=== PATIENT | male | born 1965 | race African-American/Black ===

== ENCOUNTER 2017-12-05 00:21 | Emergency (ER) | payer OTHER ==
[~2017-12-05] VITALS: Ht 180.3 cm; Wt 68.0 kg
[2017-12-05 00:28] VITALS: Ht 180.3 cm; Wt 68.0 kg
[2017-12-05 01:21] LABS: CALCIUM 9.4 mg/dL (8.5-10.1); CARBON DIOXIDE 21.3 mmol/L (21-32); CREATININE SERUM 2.3 mg/dL (0.7-1.3); POTASSIUM SERUM 3.6 mmol/L (3.5-5.1)
[2017-12-05 01:46] LABS: AMPHETAMINE QUAL UR NONE DETECTED (NEG <=1000)
[2017-12-05 02:42] VITALS: BP 121/82
[2017-12-05] MEDS ORDERED: KEPPRA500 MG (04:30)
== END 2017-12-05 02:42 | disposition home or self-care (01) ==
LOC: ED 00:21
PROVIDERS: Emergency Medicine
DX: S01.01XA Laceration without foreign body of scalp, initial encounter (principal); R56.9 Unspecified convulsions; X58.XXXA Exposure to other specified factors, initial encounter; Y93.89 Activity, other specified; Y92.89 Other specified places as the place of occurrence of the external cause; Y99.8 Other external cause status
CPT/HCPCS: 36415; J2001

== ENCOUNTER 2017-12-05 03:06 | Emergency (ER) | payer OTHER ==
[~2017-12-05] VITALS: Ht 175.3 cm; Wt 67.6 kg
[2017-12-05 03:11] VITALS: Ht 175.3 cm; Wt 67.6 kg
[2017-12-05] MEDS ORDERED: KEPPRA500 MG (04:30)
[2017-12-05 04:46] VITALS: BP 108/64
== END 2017-12-05 04:46 | disposition home or self-care (01) ==
LOC: ED 03:06
DX: S50.01XA Contusion of right elbow, initial encounter (principal); R11.2 Nausea with vomiting, unspecified; X58.XXXA Exposure to other specified factors, initial encounter; Y93.89 Activity, other specified; Y92.89 Other specified places as the place of occurrence of the external cause; Y99.8 Other external cause status
CPT/HCPCS: J1885; Q0092; Q0162

== ENCOUNTER 2017-12-20 13:44 | Emergency (ER) | payer OTHER ==
[~2017-12-20] VITALS: Ht 177.8 cm; Wt 59.0 kg
[~2017-12-20 13:44] MED LIST: KEPPRA500 MG
[2017-12-20 14:02] VITALS: BP 131/83; Ht 177.8 cm; Wt 59.0 kg
== END 2017-12-20 14:19 | disposition left against medical advice (07) ==
LOC: ED 13:44
DX: Z53.21 Procedure and treatment not carried out due to patient leaving prior to being seen by health care provider (principal)

== ENCOUNTER 2018-01-02 10:26 | Emergency (ER) | payer OTHER ==
[~2018-01-02] VITALS: Ht 180.3 cm; Wt 63.5 kg
[2018-01-02 10:41] VITALS: BP 158/97; Ht 180.3 cm; Wt 63.5 kg
== END 2018-01-02 11:40 | disposition home or self-care (01) ==
LOC: ED 10:26
DX: S01.01XD Laceration without foreign body of scalp, subsequent encounter (principal); X58.XXXD Exposure to other specified factors, subsequent encounter

== ENCOUNTER 2018-08-05 16:24 | Emergency (ER) | payer OTHER ==
[~2018-08-05] VITALS: Ht 177.8 cm; Wt 71.2 kg
[2018-08-05 16:28] VITALS: Ht 177.8 cm; Wt 71.2 kg
[2018-08-05 17:20] LABS: PLATELET COUNT 454 x10^3mcL (130-400); RED CELL DISTRIBUTION WIDTH 16.5 % (11.5-14.5)
[2018-08-05 17:41] LABS: CALCIUM 9.3 mg/dL (8.5-10.1); CARBON DIOXIDE 27.5 mmol/L (21-32); CHLORIDE SERUM 103 mmol/L (98-107); CREATININE SERUM 1.1 mg/dL (0.7-1.3); GFR1 > 60 mL/min; GLUCOSE SERUM 123 mg/dL (74-106); POTASSIUM SERUM 3.9 mmol/L (3.5-5.1); SODIUM SERUM 142 mmol/L (136-145)
[2018-08-05 17:45] LABS: ALBUMIN 4.2 g/dL (3.4-5.0); ALKALINE PHOSPHATASE 66 U/L (46-116); ALT/SGPT 45 U/L (16-63); AST/SGOT 59 U/L (15-37); BILIRUBIN TOTAL 1.03 mg/dL (0.20-1.00); TOTAL PROTEIN, SERUM 8.5 g/dL (6.4-8.2)
[2018-08-05 18:55] VITALS: BP 134/89
== END 2018-08-05 18:55 | disposition home or self-care (01) ==
LOC: ED 16:24
PROVIDERS: Emergency Medicine
DX: G40.909 Epilepsy, unspecified, not intractable, without status epilepticus (principal)
CPT/HCPCS: 82962; J1953; J3490

== ENCOUNTER 2019-09-26 16:14 | Emergency (ER) | payer OTHER ==
[~2019-09-26] VITALS: Ht 177.8 cm; Wt 59.0 kg
[2019-09-26 16:28] VITALS: Ht 177.8 cm; Wt 59.0 kg
[2019-09-26 18:30] VITALS: BP 111/75
== END 2019-09-26 18:30 | disposition home or self-care (01) ==
LOC: ED 16:14
DX: M54.2 Cervicalgia (principal); F17.210 Nicotine dependence, cigarettes, uncomplicated
CPT/HCPCS: J1885

== ENCOUNTER 2019-10-07 12:52 | Emergency (ER) | payer OTHER ==
[~2019-10-07] VITALS: Ht 177.8 cm; Wt 63.5 kg
[2019-10-07 13:03] VITALS: Ht 177.8 cm; Wt 63.5 kg
== END 2019-10-07 14:00 | disposition home or self-care (01) ==
LOC: ED 12:52
DX: Z76.0 Encounter for issue of repeat prescription (principal)

== ENCOUNTER 2020-03-27 20:55 | Inpatient (IN) | payer OTHER ==
[~2020-03-27] VITALS: Ht 177.8 cm; Wt 58.1 kg
[2020-03-27 21:04] VITALS: Ht 177.8 cm; Wt 58.1 kg
[2020-03-27 21:25] LABS: CALCIUM 8.2 mg/dL (8.5-10.1); CARBON DIOXIDE 23.7 mmol/L (21-32); CHLORIDE SERUM 95 mmol/L (98-107); CREATININE SERUM 1.3 mg/dL (0.7-1.3); GFR1 > 60 mL/min; GLUCOSE SERUM 175 mg/dL (74-106); POTASSIUM SERUM 4.3 mmol/L (3.5-5.1); SODIUM SERUM 137 mmol/L (136-145)
[2020-03-27 21:29] LABS: ALBUMIN 3.6 g/dL (3.4-5.0); ALKALINE PHOSPHATASE 92 U/L (46-116); ALT/SGPT 48 U/L (16-63); AST/SGOT 136 U/L (15-37); BILIRUBIN TOTAL 1.3 mg/dL (0.20-1.00); MAGNESIUM 1.2 mg/dL (1.8-2.4); TOTAL PROTEIN, SERUM 7.9 g/dL (6.4-8.2)
[2020-03-27 21:34] LABS: BASOPHIL % 0.5 % (0-2); PLATELET COUNT 358 x10^3mcL (130-400); RED CELL DISTRIBUTION WIDTH 16.5 % (11.5-14.5)
[2020-03-28 02:18] VITALS: BP 148/90
[2020-03-28 05:50] VITALS: BP 139/88
[2020-03-28 07:43] LABS: T3 TOTAL 1.03 ng/mL
[2020-03-28 07:47] LABS: FREE T4 0.94 ng/dL (0.76-1.46); FREE THYROXINE INDEX 1.7 ug/dL (1.4-4.5); T4(THYROXINE) 5.7 ug/dL (4.7-13.3)
[2020-03-28 08:43] VITALS: BP 146/93
[2020-03-28 08:46] LABS: PHOSPHOROUS 2.6 mg/dL (2.5-4.9)
[2020-03-28 08:58] LABS: CHOLESTEROL/HDL RATIO 1.2
[2020-03-28 12:12] LABS: BASOPHIL % 0.6 % (0-2); PLATELET COUNT 171 x10^3mcL (130-400)
[2020-03-28 12:18] LABS: RED CELL DISTRIBUTION WIDTH 16.8 % (11.5-14.5)
[2020-03-28 12:23] LABS: ALBUMIN 3.6 g/dL (3.4-5.0); ALKALINE PHOSPHATASE 91 U/L (46-116); ALT/SGPT 34 U/L (16-63); AST/SGOT 94 U/L (15-37); BILIRUBIN DIRECT 0.44 mg/dL (0.0-0.2); BILIRUBIN TOTAL 1.6 mg/dL (0.20-1.00); MAGNESIUM 2.1 mg/dL (1.8-2.4); PHOSPHOROUS 2.8 mg/dL (2.5-4.9)
[2020-03-28 12:55] LABS: CARBON DIOXIDE 21.4 mmol/L (21-32); CHLORIDE SERUM 95 mmol/L (98-107); CREATININE SERUM 0.8 mg/dL (0.7-1.3); GFR1 > 60 mL/min; GLUCOSE SERUM 66 mg/dL (74-106); POTASSIUM SERUM 3.5 mmol/L (3.5-5.1); SODIUM SERUM 140 mmol/L (136-145); TOTAL PROTEIN, SERUM 8.7 g/dL (6.4-8.2)
[2020-03-28 12:56] LABS: CALCIUM 9.2 mg/dL (8.5-10.1)
[2020-03-28 13:19] VITALS: BP 149/91
[2020-03-28] MEDS ORDERED: KEPPRA500 MG PO (14:41)
[2020-03-28 17:38] VITALS: BP 146/90
[2020-03-28 21:47] VITALS: BP 143/92
[2020-03-29 00:10] VITALS: BP 144/92
[2020-03-29 05:39] VITALS: BP 129/88
[2020-03-29 08:27] LABS: CALCIUM 8.7 mg/dL (8.5-10.1); CARBON DIOXIDE 26.1 mmol/L (21-32); CHLORIDE SERUM 94 mmol/L (98-107); CREATININE SERUM 1.2 mg/dL (0.7-1.3); GFR1 > 60 mL/min; GLUCOSE SERUM 96 mg/dL (74-106); MAGNESIUM 1.5 mg/dL (1.8-2.4); PHOSPHOROUS 1.9 mg/dL (2.5-4.9); POTASSIUM SERUM 3.1 mmol/L (3.5-5.1); SODIUM SERUM 132 mmol/L (136-145)
[2020-03-29 09:12] VITALS: BP 119/81
[2020-03-29 10:03] LABS: BASOPHIL % 0.4 % (0-2); PLATELET COUNT 266 x10^3mcL (130-400)
[2020-03-29 10:33] LABS: RED CELL DISTRIBUTION WIDTH 16.5 % (11.5-14.5)
[2020-03-29 13:11] VITALS: BP 119/73
[2020-03-29 17:54] VITALS: BP 123/81
[2020-03-29 19:43] VITALS: BP 125/87
[2020-03-30 05:57] VITALS: BP 116/82
[2020-03-30 07:48] LABS: CALCIUM 8.8 mg/dL (8.5-10.1); CARBON DIOXIDE 25.7 mmol/L (21-32); CHLORIDE SERUM 97 mmol/L (98-107); CREATININE SERUM 1.2 mg/dL (0.7-1.3); GFR1 > 60 mL/min; GLUCOSE SERUM 66 mg/dL (74-106); MAGNESIUM 2.7 mg/dL (1.8-2.4); PHOSPHOROUS 3.8 mg/dL (2.5-4.9); POTASSIUM SERUM 3.1 mmol/L (3.5-5.1); SODIUM SERUM 137 mmol/L (136-145)
[2020-03-30 08:12] LABS: BASOPHIL % 0.2 % (0-2); PLATELET COUNT 280 x10^3mcL (130-400); RED CELL DISTRIBUTION WIDTH 16.4 % (11.5-14.5)
[2020-03-30 08:50] VITALS: BP 128/102
[2020-03-30 13:52] VITALS: BP 121/78
[2020-03-30] MEDS ORDERED: FOL1 PO (17:16)
[2020-03-30] MEDS ORDERED: THI100 PO (17:16)
[2020-03-30 17:33] VITALS: BP 124/85
[2020-03-31 05:42] VITALS: BP 119/77
[2020-03-31 08:53] LABS: CALCIUM 8.7 mg/dL (8.5-10.1); CARBON DIOXIDE 27.7 mmol/L (21-32); CHLORIDE SERUM 100 mmol/L (98-107); GFR1 > 60 mL/min; GLUCOSE SERUM 84 mg/dL (74-106); POTASSIUM SERUM 3.3 mmol/L (3.5-5.1); SODIUM SERUM 137 mmol/L (136-145)
[2020-03-31 09:10] VITALS: BP 120/81
[2020-03-31 09:35] LABS: BASOPHIL % 0.6 % (0-2); PLATELET COUNT 343 x10^3mcL (130-400); RED CELL DISTRIBUTION WIDTH 16.3 % (11.5-14.5)
[2020-03-31 12:30] VITALS: BP 115/74
[2020-03-31 17:18] VITALS: BP 143/95
== END 2020-03-31 19:46 | DRG 57 ==
LOC: ED 20:55 → DU 23:42
PROVIDERS: Emergency Medicine; Family Medicine; ADMIT Internal Medicine; ATTEND Internal Medicine
PROC: 0HQ1XZZ Repair Face Skin, External Approach (ICD-10-PCS; principal; 2020-03-27)
DX: S06.0X9A Concussion with loss of consciousness of unspecified duration, initial encounter (principal); J69.0 Pneumonitis due to inhalation of food and vomit; E11.40 Type 2 diabetes mellitus with diabetic neuropathy, unspecified; E83.42 Hypomagnesemia; D53.1 Other megaloblastic anemias, not elsewhere classified; E83.39 Other disorders of phosphorus metabolism; G40.909 Epilepsy, unspecified, not intractable, without status epilepticus; S01.511A Laceration without foreign body of lip, initial encounter; Z20.828 Contact with and (suspected) exposure to other viral communicable diseases; I47.1 Supraventricular tachycardia; R41.2 Retrograde amnesia; R74.0 Nonspecific elevation of levels of transaminase and lactic acid dehydrogenase [LDH]; W18.39XA Other fall on same level, initial encounter; Y93.01 Activity, walking, marching and hiking; Y92.89 Other specified places as the place of occurrence of the external cause; Y99.8 Other external cause status; Z78.1 Physical restraint status
CPT/HCPCS: 82962; 83880; 84439; 97116-GP; 97530-GP; G0378; J0456; J1953; J1956; J2001; J2060; J2405; J2543; J3475; J3490; J7050; Q0092; U0003-CS

== ENCOUNTER 2020-06-28 17:02 | Emergency (ER) | payer OTHER ==
[~2020-06-28] VITALS: Ht 177.8 cm; Wt 56.7 kg
[~2020-06-28 17:02] MED LIST changes: +FOL1 PO; +KEPPRA500 MG PO; +THI100 PO
[2020-06-28 17:08] VITALS: Ht 177.8 cm; Wt 56.7 kg
[2020-06-28 17:31] LABS: BASOPHIL % 0.7 % (0-2); PLATELET COUNT 198 x10^3mcL (130-400)
[2020-06-28 17:32] LABS: RED CELL DISTRIBUTION WIDTH 18.2 % (11.5-14.5)
[2020-06-28 17:50] LABS: CALCIUM 8.6 mg/dL (8.5-10.1); CARBON DIOXIDE 27.8 mmol/L (21-32); CHLORIDE SERUM 93 mmol/L (98-107); CREATININE SERUM 1.2 mg/dL (0.7-1.3); GFR1 > 60 mL/min; GLUCOSE SERUM 150 mg/dL (74-106); POTASSIUM SERUM 3.3 mmol/L (3.5-5.1); SODIUM SERUM 133 mmol/L (136-145)
[2020-06-28 17:54] LABS: ALBUMIN 3.8 g/dL (3.4-5.0); ALKALINE PHOSPHATASE 61 U/L (46-116); ALT/SGPT 45 U/L (16-63); AST/SGOT 104 U/L (15-37); TOTAL PROTEIN, SERUM 8.1 g/dL (6.4-8.2)
[2020-06-28 19:38] VITALS: BP 128/90
== END 2020-06-28 19:38 | disposition home or self-care (01) ==
LOC: ED 17:02
PROVIDERS: Emergency Medicine
DX: G40.909 Epilepsy, unspecified, not intractable, without status epilepticus (principal); E83.42 Hypomagnesemia; F10.239 Alcohol dependence with withdrawal, unspecified; F17.200 Nicotine dependence, unspecified, uncomplicated
CPT/HCPCS: 99406; G0480; J3411; J3475